=== PATIENT | female | born 1955 | race American Indian/Alaskan Native ===

== ENCOUNTER 2016-08-18 14:00 | Emergency (ER) | payer OTHER ==
[2016-08-18 14:17] VITALS: BP 143/81
[2016-08-18 15:09] LABS: Basophils % (Auto) 0.7 % (0.0-1.8); Eosinophils % (Auto) 1.9 % (0.0-4.3); Hematocrit 40.7 % (30.3-42.9); Hemoglobin 13.5 gm/dl (10.1-14.3); Mean Corpuscular HGB Conc 33 % (30-34); Mean Corpuscular Hemoglobin 30 pg (28-32); Mean Corpuscular Volume 90 fl (79-97); Platelet Count 212 K/mm3 (140-440); Red Cell Distribution Width 14.7 % (13.2-15.2); White Blood Count 7.7 K/mm3 (4.5-11.0)
[2016-08-18 15:21] LABS: Anion Gap 16 mmol/L; Blood Urea Nitrogen 9 mg/dL (7-17); Calcium 9.4 mg/dL (8.4-10.2); Carbon Dioxide 29 mmol/L (22-30); Chloride 96.9 mmol/L (98-107); Glucose 89 mg/dL (65-100); Potassium 3.6 mmol/L (3.6-5.0); Sodium 138 mmol/L (137-145)
--- NOTE | 2016-08-18 16:51 | XRay Report ---
ROUTINE CHEST, TWO VIEWS: PA and lateral views demonstrate the heart and mediastinal contour to be of normal size and shape. The lungs are clear and fully expanded and the soft tissues and bony structures are normal. IMPRESSION: Normal study.
--- NOTE | 2016-08-23 01:15 | ED Elopement Review ---
ED Pt Elopement review - Results review Lab results: Laboratory Tests 08/18/16 08/18/16 14:47 14:47 WBC 7.7 RBC 4.50 Hgb 13.5 Hct 40.7 MCV 90 MCH 30 MCHC 33 RDW 14.7 Plt Count 212 Lymph % (Auto) 32.0 [place] % (Auto) 5.5 Eos % (Auto) 1.9 Baso % (Auto) 0.7 Lymph # 2.5 [place] # 0.4 Eos # 0.1 Baso # 0.1 Seg Neutrophils % 59.9 Seg Neutrophils # 4.6 Sodium 138 Potassium 3.6 Chloride 96.9 L Carbon Dioxide 29 Anion Gap 16 BUN 9 Creatinine 0.6 L Estimated GFR > 60 BUN/Creatinine Ratio 15.00 Glucose 89 Calcium 9.4 Troponin T < 0.010 - Call Back decision Pt Call Back Decision: No action required
== END 2016-08-18 21:00 | disposition left against medical advice (07) ==
LOC: ED 14:00
DX: R07.89 Other chest pain (principal); Z53.21 Procedure and treatment not carried out due to patient leaving prior to being seen by health care provider
CPT/HCPCS: 36415; 71020; 80048; 84484; 85025; 93005; 93010